=== PATIENT | female | born 1955 | race Two or more races ===

== ENCOUNTER 2020-08-07 19:04 | Emergency (ER) | payer OTHER ==
[~2020-08-07] VITALS: Ht 152.4 cm; Wt 54.5 kg
[2020-08-07 19:34] LABS: BASO # 0.1 x10^3/uL (0.0-0.2); BASO % 1 % (0-3); EOS # 0.3 x10^3/uL (0.0-0.7); EOS % 2 % (0-3); HEMATOCRIT 37.9 % (36.0-47.0); HEMOGLOBIN 12.9 g/dL (12.0-15.5); LYMPH # 3.7 x10^3/uL (1.0-4.8); LYMPH % 31 % (24-48); MEAN CORPUSCULAR HEMOGLOBIN 28 pg (25-35); MEAN CORPUSCULAR HGB CONC 34 g/dL (31-37); MEAN CORPUSCULAR VOLUME 83 fL (79-100); MONO # 0.8 x10^3/uL (0.0-1.1); MONO % 7 % (0-9); NEUT # 7.1 x10^3/uL (1.8-7.7); NEUT % 60 % (31-73); PLATELET COUNT 244 x10^3/uL (140-400); RED BLOOD COUNT 4.54 x10^6/uL (3.50-5.40); RED CELL DISTRIBUTION WIDTH 13.1 % (11.5-14.5)
[2020-08-07 19:44] LABS: CALCIUM 9.1 mg/dL (8.5-10.1); CREATININE 0.9 mg/dL (0.6-1.0); GFR 62.8; POTASSIUM 3.5 mmol/L (3.5-5.1)
--- NOTE | 2020-08-07 19:46 | ED.ADGEN ---
Past Medical History Past Medical History: Hypertension Past Surgical History: No Surgical History Smoking Status: Never Smoker Alcohol Use: None Drug Use: None General Adult EDM: Chief Complaint: LOWER EXT PAIN HPI: HPI: Patient is a 65 year old female who speaks Tajik, accompanied by her daughter who translates for her that presents to the emergency department via EMS with complaints of right l calf pain without any known injury for the last 2 days. Patient reported that at first the cramps were intermittent but they have been constant this evening. She describes the discomfort as a pins, and needle sensation and a burning pain that radiates all the way up into her chest when the pain is at its worst. She denies any nausea, vomiting, diarrhea, fever, cough, palpitations, shortness of breath, body aches, or rash. Patient currently rates her pain a 10 out of 10 on the pain scale, she denies any alleviating or exacerbating factors. Patient has a routine appointment with her primary care doctor scheduled for tomorrow. She reports a history of high blood pressure and borderline diabetes. Review of Systems: Review of Systems: Complete ROS is negative unless otherwise noted in HPI. Current Medications: Current Medications Medications (Trade) Dose Ordered Sig/Naseem Start Time Stop Time Status Last Admin Dose Admin Diazepam (Valium) 5 mg 1X ONCE 08/07/20 22:30 08/07/20 22:24 DC 08/07/20 22:16 5 MG Magnesium Oxide (Magnesium Oxide) 400 mg 1X ONCE 08/07/20 20:15 08/07/20 20:17 DC 08/07/20 20:20 400 MG Sodium Chloride 1,000 ml @ 1,000 mls/hr 1X ONCE 08/07/20 20:00 08/07/20 20:59 DC 08/07/20 20:20 1,000 MLS/HR Tramadol HCl (Ultram) 50 mg 1X ONCE 08/07/20 20:15 08/07/20 20:17 DC 08/07/20 20:21 50 MG Allergies: Allergies: Allergies Coded Allergies Type Severity Reaction Last Updated Verified No Known Drug Allergies 08/07/20 No Physical Exam: PE: See Above Constitutional: Well developed, well nourished, no acute distress, non-toxic appearance, appears uncomfortable. [] HENT: Normocephalic, atraumatic, bilateral external ears normal, nose normal. [] Eyes: PERRLA, EOMI, conjunctiva normal, no discharge. [] Neck: Normal range of motion, no stridor. [] Cardiovascular:Heart rate regular rhythm Lungs & Thorax: Respirations even and unlabored, no retractions, no respiratory distress Abdomen: soft, no tenderness Skin: Warm, dry, no erythema, no rash. [] Extremities: RLE: No bony tenderness, no obvious deformity, no crepitus, palpable posterior leg muscle tightening, normal sensation, no cyanosis, ROM intact, no edema. [] Neurologic: Alert and oriented X 3, normal motor, normal sensation, no focal deficits noted. [] Psychologic: Affect normal, judgement normal, mood normal. [] Current Patient Data: Labs: Laboratory Tests Test 08/07/20 19:15 White Blood Count 12.0 x10^3/uL (4.0-11.0) H Red Blood Count 4.54 x10^6/uL (3.50-5.40) Hemoglobin 12.9 g/dL (12.0-15.5) Hematocrit 37.9 % (36.0-47.0) Mean Corpuscular Volume 83 fL (79-100) Mean Corpuscular Hemoglobin 28 pg (25-35) Mean Corpuscular Hemoglobin Concent 34 g/dL (31-37) Red Cell Distribution Width 13.1 % (11.5-14.5) Platelet Count 244 x10^3/uL (140-400) Neutrophils (%) (Auto) 60 % (31-73) Lymphocytes (%) (Auto) 31 % (24-48) Monocytes (%) (Auto) 7 % (0-9) Eosinophils (%) (Auto) 2 % (0-3) Basophils (%) (Auto) 1 % (0-3) Neutrophils # (Auto) 7.1 x10^3/uL (1.8-7.7) Lymphocytes # (Auto) 3.7 x10^3/uL (1.0-4.8) Monocytes # (Auto) 0.8 x10^3/uL (0.0-1.1) Eosinophils # (Auto) 0.3 x10^3/uL (0.0-0.7) Basophils # (Auto) 0.1 x10^3/uL (0.0-0.2) Sodium Level 135 mmol/L (136-145) L Potassium Level 3.5 mmol/L (3.5-5.1) Chloride Level 98 mmol/L (98-107) Carbon Dioxide Level 28 mmol/L (21-32) Anion Gap 9 (6-14) Blood Urea Nitrogen 11 mg/dL (7-20) Creatinine 0.9 mg/dL (0.6-1.0) Estimated GFR (Cockcroft-Gault) 62.8 BUN/Creatinine Ratio 12 (6-20) Glucose Level 226 mg/dL (70-99) H Calcium Level 9.1 mg/dL (8.5-10.1) Magnesium Level 1.7 mg/dL (1.8-2.4) L Total Bilirubin 0.4 mg/dL (0.2-1.0) Aspartate Amino Transferase (AST) 29 U/L (15-37) Alanine Aminotransferase (ALT) 53 U/L (14-59) Alkaline Phosphatase 117 U/L (46-116) H Creatine Kinase 94 U/L (26-192) Creatine Kinase MB (Mass) < 0.5 ng/mL (0.0-3.6) Creatine Kinase MB Relative Index % (0-4) Troponin I Quantitative < 0.017 ng/mL (0.000-0.055) Total Protein 8.0 g/dL (6.4-8.2) Albumin 4.1 g/dL (3.4-5.0) Albumin/Globulin Ratio 1.1 (1.0-1.7) Laboratory Tests 08/07/20 19:15 Laboratory Tests 08/07/20 19:15 Vital Signs: Vital Signs Date Time Temp Pulse Resp B/P (MAP) Pulse Ox O2 Delivery O2 Flow Rate FiO2 08/07/20 21:15 72 182/86 (118) 100 Room Air 08/07/20 20:37 18 08/07/20 19:15 98.5 98.5 EKG: EK-sinus rhythm with leftward axis, rate 84, no STEMI, read by Dr. Blackburn [] Heart Score: C/O Chest Pain: Yes HEART Score for Chest Pain: HEART Score for Chest Pain Response (Comments) Value History Slighlty/Non-Suspicious 0 ECG Normal 0 Age >45 - < 65 1 Risk Factors 1 or 2 Risk Factors 1 Troponin < Normal Limit 0 Total 2 Risk Factors: Risk Factors: HTN Risk Scores: Score 0 - 3: 2.5% MACE over next 6 weeks - Discharge Home Score 4 - 6: 20.3% MACE over next 6 weeks - Admit for Clinical Observation Score 7 - 10: 72.7% MACE over next 6 weeks - Early Invasive Strategies Radiology/Procedures: Radiology/Procedures: PROCEDURE: VENOUS LOWER EXTREMITY RIGHT INDICATION: Reason: R CALF PAIN X2 DAYS / Spl. Instructions: / History: COMPARISON: None. TECHNIQUE: Grayscale, color and doppler ultrasound images were obtained of the right lower extremity venous vasculature. RIGHT: No thrombus identified in the common femoral vein, femoral vein, popliteal vein or visualized calf veins. IMPRESSION: * No thrombus identified in deep venous system of right lower extremity. [] PROCEDURE: CHEST AP ONLY INDICATION: Reason: CHEST DISCOMFORT / Spl. Instructions: / History: COMPARISON: None. FINDINGS: Single view of chest obtained. Enlarged cardiomediastinal silhouette. Mild interstitial opacities bilaterally. Well-defined focal consolidation is not seen. IMPRESSION: * Mild interstitial prominence bilaterally. A portion of this is likely secondary to crowding of the vascular markings from hypoexpansion but mild superimposed pulmonary vascular congestion or mild interstitial infiltrate is not excluded. Electronically signed by: Nando Sexton MD (08/07/2020 7:52 PM) [id number] Course & Med Decision Making: Course & Med Decision Making Pertinent Labs and Imaging studies reviewed. (See chart for details) 65-year-old female presented complaints of right calf pain 2 days Work-up included a EKG, lab, and ultrasound of the right lower extremity. CBC revealed a white blood cell count of 0 otherwise unremarkable; CMP revealed a sodium of 135, glucose of 226, magnesium 1.7, alk phos of 117 patient's CK index was negative and troponin was also negative. EKG revealed no acute changes or ST elevation. Patient was hypertensive throughout her stay with a history of hypertension. Patient was given 400 mg of zinc oxide tramadol in the ER she reported no relief of her discomfort after these medications. 5 mg of p.o. Valium was given. Prescription for Valium 5 mg tablets every 8 hours as needed for pain #4 was written. I encouraged the patient to apply heat to her leg to help relieve cramping as needed. I encouraged her to follow-up with her primary care doctor tomorrow for further evaluation and treatment I advised her that the ultrasound was negative for any blood clots. Patient verbalized an understanding of home care, medications, follow-up, and return to ED instructions and was in agreement with the plan of care. [] Malissaon Disclaimer: Dragon Disclaimer: This electronic medical record was generated, in whole or in part, using a voice recognition dictation system. Departure Departure Impression: Primary Impression: Right calf pain Additional Impression: Hypomagnesemia Disposition: 01 DC HOME SELF CARE/HOMELESS Condition: STABLE Referrals: NO PCP (PCP) Patient Instructions: Hypomagnesemia, Leg Cramps Additional Instructions: Follow up with your doctor as planned tomorrow. Tylenol or ibuprofen as needed for pain, return to the ER if symptoms worsen. Scripts Diazepam (VALIUM) 5 Mg Tablet 5 MG PO TID PRN for MUSCLE SPASMS for 2 Days, #4 TAB 0 Refills Prov: BESSIE ROMERO APRN 08/07/20 Problem Qualifiers BESSIE ROMERO APRN Aug 07, 2020 19:46
[2020-08-07 19:51] LABS: ALBUMIN 4.1 g/dL (3.4-5.0); ALBUMIN/GLOBULIN RATIO 1.1 (1.0-1.7); MAGNESIUM 1.7 mg/dL (1.8-2.4); TOTAL BILIRUBIN 0.4 mg/dL (0.2-1.0)
--- NOTE | 2020-08-07 19:55 | RAD ---
INDICATION: Reason: CHEST DISCOMFORT / Spl. Instructions: / History: COMPARISON: None. FINDINGS: Single view of chest obtained. Enlarged cardiomediastinal silhouette. Mild interstitial opacities bilaterally. Well-defined focal co nsolidation is not seen. IMPRESSION: * Mild interstitial prominence bilaterally. A portion of this is likely secondary to crowding of the vascular markings from hypoexpansion but mild superimposed pulmonary vascular congestion or mild int erstitial infiltrate is not excluded. Electronically signed by: Nando Sexton MD (08/07/2020 7:52 PM) [id number]
[2020-08-07] MEDS ORDERED: IV NORMAL SALINE 1000ML BAG 1,000 ML IV ONE (20:00)
--- NOTE | 2020-08-07 20:05 | RAD ---
INDICATION: Reason: R CALF PAIN X2 DAYS / Spl. Instructions: / History: COMPARISON: None. TECHNIQUE: Grayscale, color and doppler ultrasound images were obtained of the right lower extremity venous vasculature. RIGHT: No thrombus identified in the common femoral vein, femoral vein, popliteal vein or visualized calf ve ins. IMPRESSION: * No thrombus identified in deep venous system of right lower extremity. Electronically signed by: Nando Sexton MD (08/07/2020 8:03 PM) [id number]
[2020-08-07] MEDS ORDERED: MAGNESIUM OXIDE 400 MG TABLET PO ONE (20:15)
[2020-08-07] MEDS ORDERED: traMADol 50 MG TABLET PO ONE (20:15)
[2020-08-07 20:23] LABS: CREATINE KINASE 94 U/L (26-192)
[2020-08-07 21:15] VITALS: BP 182/86
[2020-08-07] MEDS ORDERED: DIAZ5TAB PO (22:04)
[2020-08-07] MEDS ORDERED: diazePAM 5 MG TABLET PO ONE (22:30)
--- NOTE | 2020-08-08 08:02 | EKG ---
[facility] [address] [place] [address] Test Date: 2020-08-07 Test Time: 19:36:40 Pat Name: JOHN CHRISTIANSON Department: Room: Gender: F [employer]: : 1955 Requested By: BESSIE ROMERO Order Number: [id number] Reading MD: Measurements Intervals [place] Rate: 84 P: 54 LA: 150 QRS: -10 QRSD: 74 T: 54 QT: 362 QTc: 431 Interpretive Statements SINUS RHYTHM LEFTWARD AXIS OTHERWISE NORMAL ECG RI6.02 No previous ECG available for comparison
== END 2020-08-07 22:21 | disposition home or self-care (01) ==
LOC: ER 19:04
DX: M79.661 Pain in right lower leg (principal); R20.2 Paresthesia of skin; E83.42 Hypomagnesemia; I10 Essential (primary) hypertension
CPT/HCPCS: 36415; 71045; 80053; 82553; 83735; 84484; 85025; 93005; 93971; 96360; 99285; J7030

== ENCOUNTER 2020-08-14 22:08 | Emergency (ER) | payer OTHER ==
[~2020-08-14] VITALS: Ht 152.4 cm; Wt 50.0 kg
[~2020-08-14 22:08] MED LIST: DIAZ5TAB PO
--- NOTE | 2020-08-15 00:08 | RAD ---
RIGHT TIBIA FIBULA AP LATERAL Clinical Indication: Reason: RIGHT ANTEROLATERAL SANT[place]O PAIN / Spl. Instructions: / History: Comparison: None. Findings: The knee and ankle joints are grossly intact. There is no acute fracture the tibia or fibula. There i s no significant soft tissue swelling. The posterior calf soft tissues are excluded on the lateral vi ew. No radiopaque foreign body is identified. There is tiny inferior calcaneal bone spur. The mineral ization is normal. IMPRESSION: No acute fracture. Electronically signed by: Brayden Braga MD (08/15/2020 12:06 AM) [facility]
--- NOTE | 2020-08-15 00:23 | PHYS DOC ---
Past Medical History Past Medical History: Hypertension Past Surgical History: No Surgical History Smoking Status: Never Smoker Alcohol Use: None Drug Use: None General Adult EDM: Chief Complaint: LOWER EXT PAIN HPI: HPI: Patient is a 65 year old female presenting for RLE pain. She was seen here 1 week prior for same complaints, no inciting event, trauma or known mechanism of injury. Patient reported right lateral de la rosa pain and had ER workup involving negative sonogram at that time. No calf pain, but ongoing right lateral de la rosa pain. Patient was RX small dose Valium for muscle spasms which she has used sparingly with improvement in symptoms. She has not followed up with her PCP. She has not reinjured the region or been more physically active since last week. No NICHOLS, fever, sick contacts, hemoptysis, AP, dysuria, bladder/bowel incontinence, calf pain, LE edema, motor or sensory function changes or other neuro deficits Review of Systems: Review of Systems: Fourteen body systems of review of systems have been reviewed. See HPI for p ertinent positives and negative responses, other vaca all other systems are negative, non-pertinent or non-contributory Heart Score: C/O Chest Pain: No HEART Score for Chest Pain: HEART Score for Chest Pain Response (Comments) Value History Slighlty/Non-Suspicious 0 Age >45 - < 65 1 Risk Factors 1 or 2 Risk Factors 1 Total 2 Risk Factors: Risk Factors: DM, Current or recent (<one month) smoker, HTN, HLP, family history of CAD, obesity. Risk Scores: Score 0 - 3: 2.5% MACE over next 6 weeks - Discharge Home Score 4 - 6: 20.3% MACE over next 6 weeks - Admit for Clinical Observation Score 7 - 10: 72.7% MACE over next 6 weeks - Early Invasive Strategies Current Medications: Current Medications Medications (Trade) Dose Ordered Sig/Naseem Start Time Stop Time Status Last Admin Dose Admin Acetaminophen (Tylenol) 1,000 mg 1X ONCE 08/15/20 00:30 08/15/20 00:31 Allergies: Allergies: Allergies Coded Allergies Type Severity Reaction Last Updated Verified No Known Drug Allergies 08/07/20 No Physical Exam: PE: Constitutional: Well developed, well nourished, no acute distress, non-toxic appearance. [] HENT: Normocephalic, atraumatic, bilateral external ears normal, oropharynx moist, no oral exudates, nose normal. [] Eyes: PERRLA, EOMI, conjunctiva normal, no discharge. [] Neck: Normal range of motion, no tenderness, supple, no stridor. [] Cardiovascular:Heart rate regular rhythm, no murmur [] Lungs & Thorax: Bilateral breath sounds clear to auscultation [] Abdomen: Bowel sounds normal, soft, no tenderness, no masses, no pulsatile masses. [] Skin: Warm, dry, no erythema, no rash. [] Back: No tenderness, no CVA tenderness. [] Extremities: No tenderness, no cyanosis, no clubbing, ROM intact, no edema. Negative faustino sign, bilateral LE lateral compartments soft. Tenderpoint to right lateral de la rosa compartment overlying peronus brevis and extensor digitorum longus muscles without visual nor palable abnormalities. Cap refill <3 sec of all toes, DP and post tibial pulses 2+ and symmetric [] Neurologic: Alert and oriented X 3, normal motor function, normal sensory function, no focal deficits noted. [] Psychologic: Affect normal, judgement normal, mood normal. [] Current Patient Data: Vital Signs: Vital Signs Date Time Temp Pulse Resp B/P (MAP) Pulse Ox O2 Delivery O2 Flow Rate FiO2 08/15/20 00:35 85 23 159/81 (107) 96 Room Air 08/15/20 00:05 89 21 144/79 (100) 95 Room Air 08/14/20 23:35 99.0 87 16 164/80 (108) 98 Room Air 99.0 EKG: EKG: [] Radiology/Procedures: Radiology/Procedures: RIGHT TIBIA FIBULA AP LATERAL Clinical Indication: Reason: RIGHT ANTEROLATERAL [place] PAIN / Spl. Instructions: / History: Comparison: None. Findings: The knee and ankle joints are grossly intact. There is no acute fracture the tibia or fibula. There is no significant soft tissue swelling. The posterior calf soft tissues are excluded on the lateral view. No radiopaque foreign body is identified. There is tiny inferior calcaneal bone spur. The mineralization is normal. IMPRESSION: No acute fracture. Electronically signed by: Brayden Braga MD (08/15/2020 12:06 AM) [facility] Course & Med Decision Making: Course & Med Decision Making Hemodynamically stable. ER workup non-concerning. Likely muscle strain/sprain to lateral de la rosa muscles and/or fascia. Compartments soft, less likely compartment syndrome vs other. discussed likely self-limiting MSK in etiology Stretches and supportive care advised. Patient requesting small dose valium since it helped with symptoms for PRN use until outpatient PCP follow-up for continued care, I agreed. She lives at home with daughter who provides / care. I educated on risks of such medications such as habit forming nature, resp depression etc. Strict return precautions discussed with good understanding, a ll questions and concerns addressed prior to departure Alec Disclaimer: Alec Disclaimer: This electronic medical record was generated, in whole or in part, using a voice recognition dictation system. Departure Departure Impression: Primary Impression: Pain of right lower extremity Disposition: 01 DC HOME SELF CARE/HOMELESS Condition: STABLE Referrals: NO PCP (PCP) Patient Instructions: Muscle Strain Additional Instructions: It is likely that you have experienced a sprain/strain within the outer portion of your right lower leg that is causing you pain. A Rest, Ice, Compression, Elevation (RICE) strategy may also be helpful in the acute phase. Please continue to utilize Tylenol and/or ibuprofen for pain. An extremely limited supply of diazepam will be provided for acute muscle spasms, please use these sparingly and under guidance by your caregiver, you will be high risk for fall while under this, do not operate heavy machinery as discussed while using this medication. Please follow up with your primary doctor. Please return to the ED if new or worrisome symptoms arise prior to outpatient follow-up. Scripts Diazepam (DIAZEPAM) 5 Mg Tablet 5 MG PO BID, #4 TAB Prov: JOSÉ GUTIERREZ DO 08/15/20 JOSÉ GUTIERREZ DO Aug 15, 2020 00:23
[2020-08-15] MEDS ORDERED: ACETAMINOPHEN 500 MG TABLET PO ONE (00:30)
[2020-08-15 00:35] VITALS: BP 159/81
[2020-08-15] MEDS ORDERED: DIAZ5TAB4 PO (00:48)
[2020-08-15] MEDS ORDERED: diazePAM 2 MG TABLET PO ONE (01:30)
== END 2020-08-15 00:55 | disposition home or self-care (01) ==
LOC: ER 22:08
DX: M79.661 Pain in right lower leg (principal); R25.2 Cramp and spasm; I10 Essential (primary) hypertension
CPT/HCPCS: 73590; 99283